=== PATIENT | female | born 1965 | race Caucasian/White ===

== ENCOUNTER 2016-08-20 11:02 | Inpatient (IN) | payer BC ==
[~2016-08-20] VITALS: Ht 177.8 cm; Wt 78.0 kg
[~2016-08-20 11:02] MED LIST: CHILD ASPIRIN81 M1 PO; LIPITOR20 MG PO; LOPRESSOR HC1 TABLET PO; LOPRESSOR25 MG PO; METFORMIN HCL500 M1 PO; METFORMIN HCL500 MG PO; METOPROLOL TART25 MG PO; MOTRIN800 MG PO; NO HOME MEDS; PERCOCET 5/31 TABLET PO; PRAVACHOL40 MG PO; PROTONIX40 MG PO; TRULICITY0.75 MG/0. SC; ULTRAM50 MG PO
[2016-08-20 11:39] LABS: HEMATOCRIT 44.7 % (36.0-46.0); MCH 25.1 PG (29.0-34.0); MCHC 32.2 G/DL (30.0-36.0); MCV 77.9 FL (83-99); MEAN PLAT.VOLUME 11.3 uM^3 (9.5-12.4); PLATELET COUNT 339 K/uL (156-360); RBC DIS.WIDTH-CV 13.8 % (11.8-14.6); RBC DIS.WIDTH-SD 38.3 % (39-53); RED BLOOD COUNT 5.74 M/uL (3.80-5.20); WHITE BLOOD COUNT 7.3 K/uL (4.1-10.2)
[2016-08-20 11:53] LABS: CHLORIDE 102 mEq/L (99-109); POTASSIUM 4.3 mEq/L (3.7-5.4); SODIUM 135 mEq/L (136-147)
[2016-08-20 11:55] LABS: GLUCOSE 312 mg/dL (70-99)
[2016-08-20 11:56] LABS: ANION GAP 13 MEQ/L (2-14)
[2016-08-20 11:59] LABS: GFR ESTIMATE (CALCULATED) > 59 mL/min/
[2016-08-20 12:00] LABS: UREA NITROGEN (BUN) 9 mg/dL (9-23)
[2016-08-20 12:01] LABS: TROP-I INTERPRETATION NEGATIVE; TROPONIN-I 0.15 ng/mL (0.0-0.30)
[2016-08-20 13:05] LABS: INTER. NORMALIZED RATIO 1.1; PROTHROMBIN TIME 10.7 (9.2-11.2); PTT 25.9 (25-32)
[2016-08-20] MEDS ORDERED: TRULICITY1.5 MG/0.5 SC (13:21)
[2016-08-20] MEDS ORDERED: BREO ELLIPTA I1 EACH IH (13:23)
[2016-08-20] MEDS ORDERED: PEPCID20 MG PO (13:23)
[2016-08-20 17:08] VITALS: BP 108/65
[2016-08-20 17:11] VITALS: BP 108/65
[2016-08-20 18:23] LABS: TROP-I INTERPRETATION NEGATIVE; TROPONIN-I 0.21 ng/mL (0.0-0.30)
[2016-08-20 19:30] VITALS: BP 116/65
[2016-08-20 20:45] LABS: POINT-OF-CARE METER ID UU14174216
[2016-08-20 23:29] LABS: TROP-I INTERPRETATION NEGATIVE; TROPONIN-I 0.21 ng/mL (0.0-0.30)
[2016-08-21] VITALS (7 sets, daily range): BP systolic 99–138; BP diastolic 57–83
[2016-08-21 06:59] LABS: INTER. NORMALIZED RATIO 1.1; PROTHROMBIN TIME 11.2 (9.2-11.2)
[2016-08-21 07:12] LABS: ANION GAP 9 MEQ/L (2-14); CHLORIDE 103 MEQ/L (99-109); GFR ESTIMATE (CALCULATED) > 59 mL/min/; GLUCOSE 237 mg/dL (70-99); POTASSIUM 3.8 MEQ/L (3.7-5.4); SAMPLE HEMOLYSIS CHECK 0; SAMPLE ICTERIC CHECK 0; SAMPLE LIPEMIA CHECK 0; SODIUM 137 MEQ/L (136-147); UREA NITROGEN (BUN) 11 mg/dL (9-23)
[2016-08-21 07:25] LABS: HEMATOCRIT 38.2 % (36.0-46.0); MCH 25.3 PG (29.0-34.0); MCHC 32.2 G/DL (30.0-36.0); MCV 78.6 FL (83-99); MEAN PLAT.VOLUME 11.3 uM^3 (9.5-12.4); PLATELET COUNT 274 K/uL (156-360); RBC DIS.WIDTH-SD 39.8 % (39-53); RED BLOOD COUNT 4.86 M/uL (3.80-5.20); WHITE BLOOD COUNT 6.7 K/uL (4.1-10.2)
[2016-08-21 07:39] LABS: POINT-OF-CARE METER ID UU13113781
[2016-08-21 08:54] LABS: Estimated Average Glucose 275 mg/dL (70-123); HEMOGLOBIN A1c (GLYCOHEMOGLOB) 11.2 % HGB (Below 5.7)
[2016-08-21 14:27] LABS: POINT-OF-CARE METER ID UU13113781
[2016-08-21 21:15] LABS: POINT-OF-CARE METER ID UU13113781
[2016-08-22 00:01] VITALS: BP 131/81
[2016-08-22 04:49] VITALS: BP 114/71
[2016-08-22 05:48] LABS: HEMATOCRIT 36.6 % (36.0-46.0); MCH 25.3 PG (29.0-34.0); MCV 79.2 FL (83-99); MEAN PLAT.VOLUME 11.6 uM^3 (9.5-12.4); PLATELET COUNT 263 K/uL (156-360); RBC DIS.WIDTH-CV 14.2 % (11.8-14.6); RBC DIS.WIDTH-SD 40.1 % (39-53); RED BLOOD COUNT 4.62 M/uL (3.80-5.20); WHITE BLOOD COUNT 6.4 K/uL (4.1-10.2)
[2016-08-22 06:29] LABS: ANION GAP 10 MEQ/L (2-14); CHLORIDE 104 MEQ/L (99-109); GFR ESTIMATE (CALCULATED) > 59 mL/min/; GLUCOSE 228 mg/dL (70-99); SAMPLE HEMOLYSIS CHECK 0; SAMPLE ICTERIC CHECK 0; SAMPLE LIPEMIA CHECK 0; SODIUM 137 MEQ/L (136-147); UREA NITROGEN (BUN) 16 mg/dL (9-23)
[2016-08-22 07:31] LABS: POINT-OF-CARE METER ID UU13113781
[2016-08-22 07:33] VITALS: BP 121/74
[2016-08-22 12:11] LABS: POINT-OF-CARE METER ID UU13113819
[2016-08-22 13:50] VITALS: BP 121/86
[2016-08-22 13:57] VITALS: BP 121/86
[2016-08-22 15:36] VITALS: BP 117/67
[2016-08-22] MEDS ORDERED: LOPRESSOR25 MG PO (16:20)
[2016-08-22] MEDS ORDERED: ATORVASTATIN CA40 MG PO (16:20)
[2016-08-22 16:46] LABS: POINT-OF-CARE METER ID UU14174216
== END 2016-08-22 19:27 | disposition home or self-care (01) | DRG 287 ==
LOC: EME 11:02 → EDOF 14:34 → 4EAST 14:34
PROVIDERS: Emergency Medicine; Internal Medicine; Physician Assistant; Student in an Organized Health Care Education/Training Program
DX: I25.110 Atherosclerotic heart disease of native coronary artery with unstable angina pectoris (principal); E78.5 Hyperlipidemia, unspecified; I10 Essential (primary) hypertension; E11.65 Type 2 diabetes mellitus with hyperglycemia; E66.9 Obesity, unspecified; Z68.29 Body mass index [BMI] 29.0-29.9, adult; Z87.891 Personal history of nicotine dependence; Z79.84 Long term (current) use of oral hypoglycemic drugs
CPT/HCPCS: 71020; 78452; 80048; 82948; 83036; 83880; 84484; 85027; 85610; 85730; 93005; 93017; 94640; 94640 76; 99281; 99285; A9500; C1769; C1887; J1644; J1815; J2250; J2785; J3010; J7030; J7040

== ENCOUNTER 2017-11-14 16:55 | Emergency (ER) | payer BC ==
[~2017-11-14] VITALS: Ht 172.7 cm; Wt 90.4 kg
[~2017-11-14 16:55] MED LIST changes: +ATORVASTATIN CA40 MG PO; +BREO ELLIPTA I1 EACH IH; +PEPCID20 MG PO; +TRULICITY1.5 MG/0.5 SC
[2017-11-14 17:04] VITALS: BP 132/88
== END 2017-11-14 19:26 | disposition left against medical advice (07) ==
LOC: EME 16:55
DX: M54.9 Dorsalgia, unspecified (principal); Z53.21 Procedure and treatment not carried out due to patient leaving prior to being seen by health care provider